=== PATIENT | male | born 1960 | race Caucasian/White ===

== ENCOUNTER 2017-02-11 13:56 | Inpatient (IN) | payer OTHER ==
[~2017-02-11] VITALS: Ht 180.3 cm; Wt 122.8 kg
[2017-02-11 15:37] VITALS: BP 106/65
[2017-02-11] MEDS ORDERED: SODIUM CHLORIDE 0.9% 1,000 ML IV SCH (16:18)
[2017-02-11] MEDS ORDERED: SODIUM CHLORIDE 0.9% 1,000 ML IV ONE (16:28)
[2017-02-11] MEDS ORDERED: PLEASE ENTER ALLERGIES MC SCH ×2 (16:30)
[2017-02-11] MEDS ORDERED: ACETAMINOPHEN 325 MG TABLET PO PRN (16:30)
[2017-02-11] MEDS ORDERED: DOCUSATE 100 MG CAPSULE PO PRN (16:30)
[2017-02-11] MEDS ORDERED: morphine SULFATE 10 MG/ML, 1ML IVPush PRN (16:30)
[2017-02-11] MEDS ORDERED: ONDANSETRON 2MG/ML, 2ML IVPush PRN (16:30)
[2017-02-11] MEDS ORDERED: POLYETHYLENE GLYCOL 17 GM PACKET PO PRN (16:30)
[2017-02-11] MEDS ORDERED: Enoxaparin 1 mg/kg protocol SQ SCH (18:00)
[2017-02-11] MEDS: NICOTINE 14MG/24 HR PATCH.TD24 TD SCH (18:04)
[2017-02-11] MEDS: METOPROLOL TARTRATE 25 MG TABLET PO SCH (18:08)
[2017-02-11 20:35] VITALS: BP 124/83
[2017-02-11] MEDS: TICAGRELOR 90 MG TABLET PO SCH (22:07)
[2017-02-11] MEDS: ATORVASTATIN 80 MG TABLET PO SCH (22:07)
[2017-02-11] MEDS: ENALAPRIL 20MG TABLET PO SCH (22:07)
[2017-02-11] MEDS: HYDROcodone/APAP 5/325 TABLET PO PRN (22:08)
[2017-02-12 01:12] VITALS: BP 118/76
[2017-02-12 05:19] LABS: HEMOGLOBIN 17.9 g/dL (13.7-18.0); WHITE BLOOD COUNT 11.2 x10^3/uL (3.4-10)
[2017-02-12 05:28] LABS: BLOOD UREA NITROGEN 16 mg/dL (7-18)
[2017-02-12 05:32] LABS: ASPARTATE AMINO TRANSFERASE 35 U/L (15-37)
[2017-02-12 05:33] LABS: IS PT STATUS REG ER OR PRE ER? NO
[2017-02-12 07:40] VITALS: BP 130/83
[2017-02-12] MEDS: OMEPRAZOLE 20 MG CAPSULE.DR PO SCH (08:38)
[2017-02-12] MEDS: TICAGRELOR 90 MG TABLET PO SCH ×2 (08:38→21:18)
[2017-02-12] MEDS: ENALAPRIL 20MG TABLET PO SCH ×2 (08:38→21:18)
[2017-02-12] MEDS: METOPROLOL TARTRATE 25 MG TABLET PO SCH ×2 (08:38→17:01)
[2017-02-12] MEDS: SENNA/DOCUSATE TABLET PO SCH (08:39)
[2017-02-12] MEDS ORDERED: FENTANYL PF 100 MCG/2ML ONE ×4 (12:56→15:05)
[2017-02-12] MEDS ORDERED: HEPARIN 1,000 UNITS/ML, 10ML ONE (12:57)
[2017-02-12] MEDS ORDERED: ASPIRIN 325 MG TABLET EC ONE (12:57)
[2017-02-12] MEDS ORDERED: VERAPAMIL 2.5 MG/ML, 2ML ONE (12:57)
[2017-02-12] MEDS ORDERED: LIDOCAINE 2%, 20ML ONE (12:57)
[2017-02-12] MEDS ORDERED: MIDAZOLAM 1 MG/ML, 5ML ONE ×4 (12:57→15:06)
[2017-02-12] MEDS ORDERED: BIVALIRUDIN 250 MG ONE ×2 (12:57→14:11)
[2017-02-12] MEDS ORDERED: PHENYLEPHRINE 10 MG/ML ONE (13:29)
[2017-02-12] MEDS ORDERED: DIPHENHYDRAMINE 50 MG/ML, 1ML ONE (13:53)
[2017-02-12] MEDS: SODIUM CHLORIDE 0.9% 1,000 ML IV SCH ×2 (15:44→23:44)
[2017-02-12] MEDS ORDERED: HYDROcodone/APAP 5/325 TABLET PO PRN (16:00)
[2017-02-12] MEDS ORDERED: METOPROLOL TARTRATE 50 MG TABLET ONE (16:58)
[2017-02-12] MEDS: HYDROcodone/APAP 5/325 TABLET PO PRN (17:00)
[2017-02-12] MEDS: NICOTINE 14MG/24 HR PATCH.TD24 TD SCH (17:00)
[2017-02-12] MEDS: ATORVASTATIN 80 MG TABLET PO SCH (21:18)
[2017-02-13] MEDS: SENNA/DOCUSATE TABLET PO SCH (09:00)
[2017-02-13] MEDS: OMEPRAZOLE 20 MG CAPSULE.DR PO SCH (10:09)
[2017-02-13] MEDS: METOPROLOL TARTRATE 25 MG TABLET PO SCH ×2 (10:09→18:54)
[2017-02-13] MEDS: ENALAPRIL 20MG TABLET PO SCH ×2 (10:10→20:15)
[2017-02-13] MEDS: TICAGRELOR 90 MG TABLET PO SCH ×2 (10:11→20:15)
[2017-02-13] MEDS ORDERED: BIVALIRUDIN 250 MG ONE ×2 (15:29→16:15)
[2017-02-13] MEDS ORDERED: MIDAZOLAM 1 MG/ML, 5ML ONE (15:29)
[2017-02-13] MEDS ORDERED: NITROGLYCERIN 5 MG/ML, 10ML ONE (15:29)
[2017-02-13] MEDS ORDERED: VERAPAMIL 2.5 MG/ML, 2ML ONE (15:29)
[2017-02-13] MEDS ORDERED: FENTANYL PF 100 MCG/2ML ONE ×2 (15:29→16:15)
[2017-02-13] MEDS ORDERED: LIDOCAINE 2%, 20ML ONE (15:30)
[2017-02-13] MEDS ORDERED: DIPHENHYDRAMINE 50 MG/ML, 1ML ONE (16:05)
[2017-02-13] MEDS: NICOTINE 14MG/24 HR PATCH.TD24 TD SCH (18:52)
[2017-02-13] MEDS: SODIUM CHLORIDE 0.9% 1,000 ML IV SCH (18:55)
[2017-02-13] MEDS: ATORVASTATIN 80 MG TABLET PO SCH (20:15)
[2017-02-13] MEDS ORDERED: TICAGRELOR 90 MG TABLET PO SCH (21:00)
[2017-02-14] MEDS: SODIUM CHLORIDE 0.9% 1,000 ML IV SCH ×2 (02:03→10:03)
[2017-02-14 04:44] LABS: BLOOD UREA NITROGEN 18 mg/dL (7-18)
[2017-02-14] MEDS: METOPROLOL TARTRATE 25 MG TABLET PO SCH (05:56)
[2017-02-14] MEDS ORDERED: ASPIRIN 81 MG TABLET EC PO SCH (09:00)
[2017-02-14] MEDS: SENNA/DOCUSATE TABLET PO SCH (09:00)
[2017-02-14] MEDS: OMEPRAZOLE 20 MG CAPSULE.DR PO SCH (09:04)
[2017-02-14] MEDS: TICAGRELOR 90 MG TABLET PO SCH (09:05)
[2017-02-14] MEDS: ENALAPRIL 20MG TABLET PO SCH (09:05)
[2017-02-14] MEDS ORDERED: TICA90TA PO (10:41)
[2017-02-14] MEDS ORDERED: METO25TA35 PO (10:41)
[2017-02-14] MEDS ORDERED: ATOR-2 PO (10:41)
[2017-02-14] MEDS ORDERED: NITR0.4T28 SL (10:41)
[2017-02-14] MEDS ORDERED: ENAL20TA PO (12:01)
[2017-02-14] MEDS ORDERED: RANI150C PO (12:01)
[2017-02-14] MEDS ORDERED: ASPI-621 PO (12:02)
== END 2017-02-14 12:20 | disposition home or self-care (01) | DRG 251 ==
LOC: 5SO 15:05 → CCU 02-12 16:30 → DCLOUNGE 02-14 11:53
PROVIDERS: ADMIT Hospitalist; ATTEND Family Medicine
PROC: 02703ZZ Dilation of Coronary Artery, One Artery, Percutaneous Approach (ICD-10-PCS; principal; 2017-02-12)
PROC: 4A023N7 Measurement of Cardiac Sampling and Pressure, Left Heart, Percutaneous Approach (ICD-10-PCS; 2017-02-12)
PROC: B2111ZZ Fluoroscopy of Multiple Coronary Arteries using Low Osmolar Contrast (ICD-10-PCS; 2017-02-12)
DX: I21.4 Non-ST elevation (NSTEMI) myocardial infarction (principal); D69.6 Thrombocytopenia, unspecified; D12.6 Benign neoplasm of colon, unspecified; E66.9 Obesity, unspecified; E78.5 Hyperlipidemia, unspecified; F17.210 Nicotine dependence, cigarettes, uncomplicated; G47.33 Obstructive sleep apnea (adult) (pediatric); I48.91 Unspecified atrial fibrillation; I10 Essential (primary) hypertension; I25.10 Atherosclerotic heart disease of native coronary artery without angina pectoris; J44.9 Chronic obstructive pulmonary disease, unspecified; K21.9 Gastro-esophageal reflux disease without esophagitis; M48.061 Spinal stenosis, lumbar region without neurogenic claudication; Z68.37 Body mass index [BMI] 37.0-37.9, adult; Z87.442 Personal history of urinary calculi; Z80.0 Family history of malignant neoplasm of digestive organs; Z80.7 Family history of other malignant neoplasms of lymphoid, hematopoietic and related tissues; Z82.49 Family history of ischemic heart disease and other diseases of the circulatory system; Z79.899 Other long term (current) drug therapy; Y83.8 Other surgical procedures as the cause of abnormal reaction of the patient, or of later complication, without mention of misadventure at the time of the procedure; Y92.89 Other specified places as the place of occurrence of the external cause
CPT/HCPCS: 36415; 75716; 80048; 80053; 80061; 82040; 83735; 84100; 84484; 85018; 85025; 87081; 92920; 93306; 93454; 99156; 99157; C1769; C1894; C9600; J0583; J1644; J2250; J3010; J3490; 92928; C1725; C1874; C1887; J1200; J2370; J7030; Q9967

== ENCOUNTER 2017-02-17 22:34 | Inpatient (IN) | payer OTHER ==
[~2017-02-17] VITALS: Ht 180.3 cm; Wt 121.1 kg
[~2017-02-17 22:34] MED LIST: ASPI-621 PO; ATOR-2 PO; ENAL20TA PO; METO25TA35 PO; NITR0.4T28 SL; RANI150C PO; TICA90TA PO
[2017-02-17 22:51] LABS: HEMATOCRIT 50.2 % (39.2-51.8); HEMOGLOBIN 16.7 g/dL (13.7-18.0); WHITE BLOOD COUNT 16.1 x10^3/uL (3.4-10)
[2017-02-17 23:03] LABS: ASPARTATE AMINO TRANSFERASE 28 U/L (15-37); BLOOD UREA NITROGEN 15 mg/dL (7-18)
[2017-02-17 23:07] LABS: IS PT STATUS REG ER OR PRE ER? YES
[2017-02-17] MEDS ORDERED: HEPARIN 5,000 UNITS/ML, 1ML IV PRN (23:45)
[2017-02-17] MEDS ORDERED: HEPARIN 25,000 UNITS/500ML PMX 500 ML IV PRN (23:45)
[2017-02-18] MEDS ORDERED: HEPARIN 25,000 UNITS/500ML PMX 500 ML ONE (00:07)
[2017-02-18] MEDS ORDERED: CYCL-259 PO (00:29)
[2017-02-18] MEDS ORDERED: ONDANSETRON 2MG/ML, 2ML IVP PRN (01:00)
[2017-02-18] MEDS ORDERED: NITROGLYCERIN 0.4 MG/SPRAY SL PRN (01:00)
[2017-02-18] MEDS ORDERED: NITROGLYCERIN 0.4 MG BOTTLE (25 TABS) SL PRN (01:00)
[2017-02-18] MEDS ORDERED: morphine SULFATE 10 MG/ML, 1ML IV PRN (01:00)
[2017-02-18 01:14] LABS: IS PT STATUS REG ER OR PRE ER? NO
[2017-02-18 01:43] VITALS: BP 120/78
[2017-02-18 02:30] VITALS: BP 120/78
[2017-02-18 04:52] LABS: IS PT STATUS REG ER OR PRE ER? NO
[2017-02-18] MEDS: METOPROLOL TARTRATE 25 MG TABLET PO SCH ×2 (06:00→17:12)
[2017-02-18 07:08] LABS: IS PT STATUS REG ER OR PRE ER? NO
[2017-02-18 07:50] VITALS: BP 115/73
[2017-02-18] MEDS: TICAGRELOR 90 MG TABLET PO SCH ×2 (08:16→21:25)
[2017-02-18] MEDS: ENALAPRIL 20MG TABLET PO SCH ×2 (08:16→21:25)
[2017-02-18] MEDS: ASPIRIN 81 MG TABLET EC PO SCH (08:16)
[2017-02-18] MEDS: SODIUM CHLORIDE FLUSH 10ML SYR IVF SCH ×4 (08:16→21:26)
[2017-02-18] MEDS: ISOSORBIDE MONONITRATE ER 30 MG TABLET PO SCH (12:33)
[2017-02-18 12:48] VITALS: BP 112/76
[2017-02-18] MEDS ORDERED: ENOXAPARIN 40 MG/0.4 ML SQ SCH ×2 (18:30→21:00)
[2017-02-18 19:19] LABS: IS PT STATUS REG ER OR PRE ER? NO
[2017-02-18 20:48] VITALS: BP 103/64
[2017-02-18] MEDS ORDERED: ATORVASTATIN 80 MG TABLET PO SCH (21:00)
[2017-02-19 02:51] VITALS: BP 103/63
[2017-02-19 04:50] LABS: HEMATOCRIT 44.7 % (39.2-51.8); HEMOGLOBIN 15.4 g/dL (13.7-18.0); WHITE BLOOD COUNT 13.2 x10^3/uL (3.4-10)
[2017-02-19 05:04] LABS: BLOOD UREA NITROGEN 16 mg/dL (7-18)
[2017-02-19 05:09] LABS: ASPARTATE AMINO TRANSFERASE 22 U/L (15-37)
[2017-02-19] MEDS: METOPROLOL TARTRATE 25 MG TABLET PO SCH (06:37)
[2017-02-19 07:00] VITALS: BP 110/70
[2017-02-19] MEDS: TICAGRELOR 90 MG TABLET PO SCH (08:14)
[2017-02-19] MEDS: ISOSORBIDE MONONITRATE ER 30 MG TABLET PO SCH (08:14)
[2017-02-19] MEDS: ASPIRIN 81 MG TABLET EC PO SCH (08:14)
[2017-02-19] MEDS: ENALAPRIL 20MG TABLET PO SCH (08:14)
[2017-02-19] MEDS: SODIUM CHLORIDE FLUSH 10ML SYR IVF SCH ×2 (08:14→08:15)
[2017-02-19] MEDS ORDERED: SODIUM CHLORIDE 0.9% 1,000 ML IV SCH (08:30)
[2017-02-19] MEDS ORDERED: ISOS30TA8 PO (09:34)
== END 2017-02-19 11:07 | disposition home or self-care (01) | DRG 280 ==
LOC: ED 02-18 00:10 → EDIP 02-18 00:11 → ED 02-18 00:52 → 5SO 02-18 01:37 → UNDODISIN 02-19 10:09 → DCLOUNGE 02-19 10:45
PROVIDERS: ADMIT Family Medicine; ATTEND Family Medicine
DX: I25.10 Atherosclerotic heart disease of native coronary artery without angina pectoris (principal); N17.0 Acute kidney failure with tubular necrosis; I21.4 Non-ST elevation (NSTEMI) myocardial infarction; R17 Unspecified jaundice; R07.89 Other chest pain; E66.01 Morbid (severe) obesity due to excess calories; D72.829 Elevated white blood cell count, unspecified; E78.00 Pure hypercholesterolemia, unspecified; E78.5 Hyperlipidemia, unspecified; I10 Essential (primary) hypertension; Z68.37 Body mass index [BMI] 37.0-37.9, adult; F17.210 Nicotine dependence, cigarettes, uncomplicated; G47.33 Obstructive sleep apnea (adult) (pediatric); Z79.899 Other long term (current) drug therapy; Z86.010 Personal history of colon polyps; Z95.5 Presence of coronary angioplasty implant and graft
CPT/HCPCS: 36415; 80053; 83735; 83880; 84484; 85025; 85520; 85610; 85730; 93005; 99285; J1644; J1650; J7030

== ENCOUNTER → 2017-05-03 | Outpatient (CLI) | payer OTHER ==
[~2017-05-03] MED LIST changes: +CYCL-259 PO; +ISOS30TA8 PO
[2017-05-03 12:58] LABS: ALBUMIN 4.2 g/dL (3.4-5.0)
[2017-05-03 13:02] LABS: BILIRUBIN, DIRECT 0.2 mg/dL (0.1-0.2); BILIRUBIN,INDIRECT 0.7 mg/dL (0.0-2.0); BILIRUBIN,TOTAL 0.9 mg/dL (0.2-1.0); CHOL/HDL RATIO 2.3; LDL/HDL RATIO 0.7 (0.5-3.0); TOTAL PROTEIN 8.2 g/dL (6.4-8.2)
== END | disposition home or self-care (01) ==
LOC: CFH 09:25
PROVIDERS: ATTEND Internal Medicine Cardiovascular Disease
DX: E78.2 Mixed hyperlipidemia (principal); I20.0 Unstable angina; Z98.61 Coronary angioplasty status
CPT/HCPCS: 36415; 80061; 80076

== ENCOUNTER → 2017-08-02 | Outpatient (CLI) | payer OTHER ==
[~2017-08-02] MED LIST changes: +REGADENOSON 0.4 MG/5 ML SYRINGE ONE
== END | disposition home or self-care (01) ==
LOC: CFH 11:42
PROVIDERS: ATTEND Physician Assistant Medical
DX: R07.9 Chest pain, unspecified (principal)
CPT/HCPCS: 78452; 93017; A9502; J2785

== ENCOUNTER → 2020-10-04 | Outpatient (CLI) | payer OTHER ==
[~2020-10-04] MED LIST changes: -ASPI-621 PO; +ASPI81TA45 PO; -CYCL-259 PO; +CYCL10TA2 PO; -ENAL20TA PO; +ENAL20TA9 PO
== END | disposition home or self-care (01) ==
LOC: CFH 12:30
PROVIDERS: ATTEND Internal Medicine Cardiovascular Disease
DX: I25.10 Atherosclerotic heart disease of native coronary artery without angina pectoris (principal); R07.9 Chest pain, unspecified
CPT/HCPCS: 78452; 93017; A9502; J2785